=== PATIENT | female | born 1940 | race Caucasian/White ===

== ENCOUNTER → 2017-10-14 | Outpatient (CLI) | payer MEDICARE ==
[~2017-10-14] MED LIST: ACE500 PO; ALB0.5 INH; ALBU8HFA INH; ALBU8TAB4 PO; ALP25 PO; AMLO2.5T74 PO; AMLO2.5T75 PO; ASC500 PO; ASCO-599 PO; BIS10S PR; CALC-1201 PO; CALC1TAB30 PO; CALC3.7S2 ENA; CALC3.7S7 NS; CEPT PO; CHOL100094 PO; CIT500PT PO; CRAN1POW PO; CRAN500C11 PO; DEXT1DRO16 OP; DIP5L PO; DOC100 PO; EST3 PO; FERR140T2 PO; FERR142T6 PO; FLU44R IH; FLUINH INH; FOLTX PO; GLUC1TAB2 PO; HYDR-3250 PO; MELA10TA2 PO; MOM PO; MULT-1177 PO; MULT-989 PO; NEFA50TA PO; NIT4 SL; OMEG-11 PO; OMEG-26 PO; OND4 PO; OXYC1TAB54 PO; OXYGEN INH; PAN40 PO; POTA99TA12 PO; POTA99TA22 PO; PROAIRPT IH; PROM25S PR; PROP1DRO4 OP; RIV10 PO; SEN PO; SENN8.6T5 PO; SODI56GE DT; SYSTANEPT OP; TRAM100T22 PO; VITA-129 PO; VITA100T PO; VITA1CAP46 PO; VITA200C39 PO; ZOL5 PO; [UNRECOGNIZED DRUG - CODE] OP; [UNRECOGNIZED DRUG - CODE] OP; [UNRECOGNIZED DRUG - CODE] PO; [UNRECOGNIZED DRUG - OTHER] PO
--- NOTE | 2017-10-14 14:54 | RADIOLOGY IMAGING REPORT ---
FACILITY: [facility] - [place] PATIENT NAME: Elizabet Renteria : 1940 MR: [id number] V: [id number] EXAM DATE: ORDERING PHYSICIAN: BISHOP SHEARER TECHNOLOGIST: Location: [facility] - [place] Patient: Elizabet Renteria : 1940 Visit/Account:[id number] Date of Sevice: 10/14/2017 DEXA Scan Clinical history: Steroid use for asthma, left femoral chio. Comparison: DEXA scan from 09/10/2015. LUMBAR SPINE: The bone mineral density (BMD) measured from L1-L4 correlates with a Z-score of 1.0 and a T-score of -0.8 which is Normal as defined by the World Health Organization. The corresponding risk of fracture in the lumbar spine is 1-2 times increased compared with a young adult reference population. This v alue has decrease by 1.2 % since the prior study. More than 5% change is considered significant. HIP: Bone mineral density (BMD) measured in the RIGHT total hip region correlates with a Z-score -0.1 and a T-score of -1.9 which is osteopenia as defined by the World Health Organization. The corresponding risk of fracture in the hip is 3-4 times increased compared to a young adult reference population. T his value has decreased by 0.8 % since the prior study. More than 5% change is considered significan t. T score left femoral neck -2 Bone mineral density (BMD) measured in the Femoral Neck region measures 0.756 g/cm?. IMPRESSION: 1. Lumbar spine: Normal. There has been decreased by 1.2% in the bone mineral density since the pre vious exam. 2. Left Total Hip: Osteopenia. There has been decreased by 0.8% in the bone mineral density since t he previous exam. 3. Femoral Neck: Bone Mineral Density is 0.756 g/cm? The next DEXA scan of this patient should include the following sites: L1-L4 and the left hip. FRAX? WHO Fracture Risk Assessment Tool link: <http://www.shef.ac.uk/FRAX/tool.jsp?locationValue=9> PLEASE NOTE: 1) The World Health Organization defines low BMD as follows: T-score Normal > -1 Osteopenia < -1 and > -2.5 Osteoporosis < -2.5 without fractures Established osteoporosis < -2.5 with fractures 2) In general, you may wish to consider: Diagnosis Treatment Follow-up DEXA Normal BMD Prevention 2-3 years Osteopenia Prevention/therapy 1-2 years Osteoporosis Therapy Yearly 3) Fracture risk estimated from the T-score is more accurate for vertebral fractures (often spontane ous) than for hip fractures. Report Dictated By: Delisa Ocampo MD at 10/14/2017 2:50 PM Report E-Signed By: Delisa Ocampo MD at 10/14/2017 2:51 PM WSN:[email or web address]
--- NOTE | 2017-10-15 08:24 | RADIOLOGY IMAGING REPORT ---
FACILITY: [facility] - [place] PATIENT NAME: JOSE LUIS DELEON : [id number] MR: [id number] V: [id number] EXAM DATE: ORDERING PHYSICIAN: BISHOP SHEARER TECHNOLOGIST: Shabnam Henderson PROCEDURE:BILATERAL DIGITAL SCREENING MAMMOGRAM WITH CAD ASSISTED INTERPRETATION & 3D TOMOSYNTHESIS COMPARISON:Prior mammograms 10/13/16, 09/10/15, 05/15/14, 03/17/13, 02/18/12, 12/10/10. INDICATIONS:SCREENING FINDINGS: Moderately heterogeneous fibroglandular tissue is seen throughout the breasts. The parenchymal pattern has remained stable allowing for difference in mammographic technique & patient positioning. There is no evidence of malignant appearing mass, malignant appearing calcifications or other secondary sign of malignancy in either breast. DIAGNOSTIC CATEGORY 1--NEGATIVE. RECOMMENDATIONS: ROUTINE MAMMOGRAM AND CLINICAL EVALUATION. IMPRESSION: BIRADS 1: Negative No significant abnormality is seen. Dictated by: Delisa Ocampo M.D. on 10/14/2017 at 16:28 Transcribed by: GLORIA on 10/15/2017 at 8:06 Approved by: Delisa Ocampo M.D. on 10/15/2017 at 8:22 [facility]
== END ==
LOC: MAMO 01:44
PROVIDERS: ATTEND Physician Assistant
DX: Z13.820 Encounter for screening for osteoporosis (principal); Z12.31 Encounter for screening mammogram for malignant neoplasm of breast; M85.80 Other specified disorders of bone density and structure, unspecified site; N95.8 Other specified menopausal and perimenopausal disorders
CPT/HCPCS: 77063; 77067; 77080

== ENCOUNTER → 2017-12-02 | Outpatient (CLI) | payer MEDICARE ==
--- NOTE | 2017-12-02 17:10 | RADIOLOGY IMAGING REPORT ---
FACILITY: [facility] PATIENT NAME: Elizabet Renteria : 1940 MR: [id number] V: [id number] EXAM DATE: ORDERING PHYSICIAN: BISHOP SHEARER TECHNOLOGIST: Location: [facility] - [place] Patient: Elizabet Renteria : 1940 Visit/Account:[id number] Date of Sevice: 12/02/2017 Examination: CHEST PA AND LAT Comparison: 11/06/2012 History: Cough. Elevated white blood cell count. Findings: Cardiac and hilar contour size is within normal limits and unchanged. Chronic hyperexpansion and interstitial thickening with a small region of scarring adjacent to the ca rdiac apex is unchanged. No new or enlarging consolidation, nodule, or evidence of acute peribronchia l inflammation. No pneumothorax, edema, or effusion. Osseous structures are intact. IMPRESSION: Chronic changes with no evidence of acute cardiopulmonary disease. Report Dictated By: Jorge Alberto Escobar MD at 12/02/2017 5:03 PM Report E-Signed By: Jorge Alberto Escobar MD at 12/02/2017 5:07 PM WSN:[id number]
== END ==
LOC: RAD 16:22
PROVIDERS: ATTEND Physician Assistant
DX: R91.8 Other nonspecific abnormal finding of lung field (principal)
CPT/HCPCS: 71046

== ENCOUNTER → 2018-08-17 | Outpatient (REF) | payer MEDICARE | LOC: ZZSENDIN 15:21 | PROVIDERS: ATTEND Physician Assistant | DX: N39.0 Urinary tract infection, site not specified (principal); B96.89 Other specified bacterial agents as the cause of diseases classified elsewhere | CPT/HCPCS: 87077; 87088; 87186 ==

== ENCOUNTER → 2018-12-06 | Outpatient (CLI) | payer MEDICARE ==
--- NOTE | 2018-12-06 14:26 | RADIOLOGY IMAGING REPORT ---
FACILITY: [facility] - [place] PATIENT NAME: Elizabet Renteria : 1940 MR: [id number] V: [id number] EXAM DATE: ORDERING PHYSICIAN: BISHOP SHEARER TECHNOLOGIST: Location: [facility] - [place] Patient: Elizabet Renteria : 1940 Visit/Account:[id number] Date of Sevice: 12/06/2018 Exam type: CHEST PA LAT History: Cough Comparison: December 02, 2017. And December 06, 2012 Findings: Again noted is hyperexpansion the lung delgado. There is a nodular density projecting over the right lung base slightly increased in size when compared to December 06, 2012. Given the relatively slow change in size this is more likely a benign nodule relative to a malignant nodule. This chronic peribronch ial thickening bilaterally and a small amount of linear scarring in the left lung base. The cardiac silhouette is mildly enlarged. There is moderate ectasia the thoracic aorta IMPRESSION: 1. Hyperexpansion the lung delgado, chronic peribronchial thickening and scarring in the left lung ba se appear relatively unchanged Cardiac silhouette is mildly enlarged Nodular density projecting over the right lung base is slightly increased in size when compared to 2012. Given the relatively slow growth this nodule is most likely benign. Report Dictated By: Delisa Ocampo MD at 12/06/2018 2:18 PM Report E-Signed By: Delisa Ocampo MD at 12/06/2018 2:21 PM WSN:[email or web address]
== END ==
LOC: RAD 12:27
PROVIDERS: ATTEND Physician Assistant
DX: I51.7 Cardiomegaly (principal); R91.1 Solitary pulmonary nodule
CPT/HCPCS: 71046

== ENCOUNTER → 2018-12-29 | Outpatient (CLI) | payer MEDICARE ==
--- NOTE | 2018-12-30 08:22 | RADIOLOGY IMAGING REPORT ---
FACILITY: [facility] - [place] PATIENT NAME: JOSE LUIS DELEON : [id number] MR: [id number] V: [id number] EXAM DATE: ORDERING PHYSICIAN: BISHOP SHEARER TECHNOLOGIST: Shabnam Henderson PROCEDURE: BILATERAL DIGITAL SCREENING MAMMOGRAM WITH CAD ASSISTED INTERPRETATION & 3D TOMOSYNTHESIS REASON FOR STUDY: Screening FAMILY HISTORY OF BREAST CANCER: None BREAST PROCEDURES/TREATMENTS: Patient is unsure COMPARISON: 10/14/17, 10/13/16, 09/10/15, 05/15/14, 03/17/13, 02/18/12 VIEWS OBTAINED: Bilateral 2D & 3D full field CC & MLO projections BREAST DENSITY: The breasts are heterogeneously dense which can obscure small masses. MAMMOGRAM FINDINGS: The parenchymal pattern has remained stable allowing for difference in mammographic technique & patient positioning. IMPRESSION: BIRADS 1: Negative. DIAGNOSTIC CATEGORY 1--NEGATIVE. RECOMMENDATIONS: ROUTINE MAMMOGRAM AND CLINICAL EVALUATION. Dictated by: Delisa Ocampo M.D. on 12/29/2018 at 16:49 Transcribed by: KEV on 12/30/2018 at 7:01 Approved by: Delisa Ocampo M.D. on 12/30/2018 at 8:19 [facility]
== END ==
LOC: MAMO 00:18
PROVIDERS: ATTEND Physician Assistant
DX: Z12.31 Encounter for screening mammogram for malignant neoplasm of breast (principal)
CPT/HCPCS: 77063; 77067